=== PATIENT | female | born 1995 | race Caucasian/White ===

== ENCOUNTER 2018-09-24 17:22 | Observation (INO) | payer OTHER ==
[2018-09-24] MEDS ORDERED: CEFAZOLIN 1 GM VIAL ONE (18:49)
--- NOTE | 2018-09-24 18:52 | RAD ---
RIGHT FINGER THREE VIEWS: 09/24/18 INDICATION: History of dog bite. COMPARISON: None. FINDINGS: There is a comminuted fracture through the distal phalanx of the right ring finger with associated ov erlying soft tissue maceration. No retained foreign body is evident. IMPRESSION: Comminuted distal phalangeal fracture of the right ring finger with associated soft tissue injury. POS: PARMINDER
[2018-09-24] MEDS ORDERED: Gentamicin Sulfate 400 MG in Sodium Chloride 0.9% 100 ML IVPB SCH (19:30)
[2018-09-24] MEDS ORDERED: hydrALAZINE 20 MG/ML VIAL SLOW IVP PRN (21:26)
[2018-09-24] MEDS ORDERED: Ondansetron ODT 4 MG TAB PO PRN (21:26)
[2018-09-24] MEDS ORDERED: Dextrose 5% in Water 1,000 ML IV PRN (21:26)
[2018-09-24] MEDS ORDERED: Dextrose 50% Abboject 50 ML SYRINGE SLOW IVP PRN (21:26)
[2018-09-24] MEDS ORDERED: Ondansetron PF 4 MG/2 ML Vial IVP PRN (21:26)
[2018-09-24] MEDS ORDERED: traMADol HCl 50 MG TAB PO PRN (21:31)
[2018-09-24] MEDS ORDERED: traMADol HCl 50 MG TAB PO SCH (22:00)
[2018-09-24] MEDS ORDERED: Ibuprofen 800 MG TAB PO SCH (22:00)
[2018-09-24] MEDS ORDERED: Acetaminophen 500 MG TAB PO SCH (22:00)
[2018-09-24] MEDS ORDERED: CEFAZOLIN 1 GM in Sodium Chloride 0.9% 100 ML IVPB SCH (22:45)
[2018-09-24] MEDS ORDERED: Acetaminophen 500 MG TAB ONE (22:56)
[2018-09-25] MEDS: Sodium Chloride 0.9% 1,000 ML IV SCH ×2 (00:49→06:30)
[2018-09-25] MEDS ORDERED: Bacitracin Zinc Ointment 30 gm TUBE ONE (00:54)
[2018-09-25] MEDS ORDERED: Sodium Chloride 0.9% 50 ML ONE (00:56)
[2018-09-25] MEDS ORDERED: Fentanyl 100 MCG/2 ML VIAL ONE (01:07)
[2018-09-25] MEDS ORDERED: Bupivacaine PF 0.5% 30 ML VIAL ONE (01:52)
--- NOTE | 2018-09-25 02:12 | HP ---
REQUESTING PHYSICIAN: Dr. Underwood. ADMITTING PHYSICIAN: Dr. Tiwari. CONSULTS: Dr. Shannon. HISTORY OF PRESENT ILLNESS: This is a 23-year-old female who came to the ER from the Urgent Care with complaints of a dog bite to the right hand. The patient reports onset about 330 this evening. The patient was attempting to break up her dogs from fighting and was bit. The patient was given a tetanus shot at Urgent Care. The patient was also given Toradol for pain. Trauma Services was asked to admit the patient. The patient was given IV antibiotics, gentamicin, and Ancef in the emergency room. PAST MEDICAL HISTORY: Denies. PAST SURGICAL HISTORY: Breast augmentation. SOCIAL HISTORY: Drinks alcohol socially. Denies tobacco or smoking history. Denies drug use. ALLERGIES: DENIES ANY DRUG ALLERGIES. FAMILY HISTORY: Reports dad with diabetes type 2 and breast cancer history in her family. MEDICATIONS: Oral contraceptives. REVIEW OF SYSTEMS: A 10-point review of systems is negative unless otherwise stated in the above HPI. PHYSICAL EXAMINATION: VITAL SIGNS: Blood pressure 140/83, respirations 16, temperature 98.9, SpO2 of 96% on room air, and pulse 97. GENERAL: The patient is awake, alert, in no distress. HEENT: Atraumatic, normocephalic. NECK: Normal neck exam, normal range of motion, and trachea is midline. RESPIRATORY: Respirations are equal and clear breath sounds bilateral. No respiratory distress. CARDIOVASCULAR: Regular rate and rhythm. No murmurs. ABDOMEN: Soft, nontender, and nondistended. BACK: Normal inspection. Normal range of motion. EXTREMITIES: Laceration of right ring finger. Laceration extends from the nail bed to the lateral aspect of the dorsum of the ring finger. There is no obvious bone protrusion. No other obvious injuries. The patient moves all extremities. Normal distal pulses x4. Sensation intact x4. NEUROLOGIC: No focal deficits. LABORATORY DATA: There are no labs to evaluate. DIAGNOSTIC DATA: Right finger 3-view x-ray, comminuted distal phalangeal fracture of the right ring finger with associated soft tissue injury. IMPRESSION: 1. Status post dog bite, right ring finger. 2. Open comminuted distal phalangeal fracture, right ring finger. 3. Acute traumatic pain. PLAN: We will admit the patient to the surgical floor. Dr. Shannon plans to take the patient to the OR in the morning. The patient will be n.p.o. We will continue patient's IV antibiotics. The patient will be discussed with Dr. Tiwari after this dictation. Job ID: [id number] [facility]
[2018-09-25] MEDS ORDERED: Ondansetron HCl/PF 4 MG/2 ML Vial IVP PRN (03:08)
[2018-09-25] MEDS ORDERED: Promethazine HCl 25 MG/ML VIAL IM PRN (03:08)
[2018-09-25] MEDS ORDERED: Promethazine HCl 25 MG/ML VIAL SLOW IVP PRN (03:08)
[2018-09-25] MEDS ORDERED: Acetaminophen 325 MG TAB PO PRN ×2 (03:39→04:20)
[2018-09-25] MEDS ORDERED: traMADol HCl 50 MG TAB PO PRN (03:39)
[2018-09-25] MEDS ORDERED: Acetaminophen/Codeine 30-300mg Tablet PO PRN ×2 (03:39→04:20)
[2018-09-25] MEDS ORDERED: HYDROcodone/Acetaminophen 5/325 mg Tablet PO PRN ×2 (03:39→04:21)
[2018-09-25] MEDS ORDERED: Meperidine HCl/PF 25 MG/ML VIAL IM PRN (03:44)
[2018-09-25] MEDS ORDERED: Communication Order-Pharmacy FS PRN (03:45)
[2018-09-25] MEDS ORDERED: TETANUS AND DIPHTHERIA TOX/PF 0.5 ML DISP.SYRIN IM SCH (03:45)
[2018-09-25] MEDS ORDERED: Vancomycin HCl 1 GM in Premix Bag 1 BAG IVPB SCH ×2 (03:45→04:15)
[2018-09-25] MEDS ORDERED: Vancomycin HCl 1.5 GM in Sodium Chloride 0.9% 250 ML 300 ML IVPB SCH (04:30)
[2018-09-25] MEDS: traMADol HCl 50 MG TAB PO SCH ×2 (07:24→13:50)
[2018-09-25] MEDS: Acetaminophen 500 MG TAB PO SCH ×2 (07:25→13:50)
[2018-09-25] MEDS: Ketorolac Tromethamine 30 MG/ML VIAL IVP SCH ×2 (07:26→13:48)
[2018-09-25 07:46] LABS: #Eosinphils 0.1 thou/uL (0.0-0.7); #Lymphocytes 1.5 thou/uL (1.20-3.40); #Monocytes 0.5 thou/uL (0.11-0.59); %Basophils 0.2 % (0.0-1.0); %Eosinophils 0.9 % (0.0-10.0); %Lymphocytes 20.7 % (21.0-51.0); %Monocytes 7.6 % (0.0-10.0); %Neutrophils 70.7 % (42.0-75.0); Hemoglobin 10.9 g/dL (12.0-16.0); Mean Corpuscular HGB CONC 34.2 g/dL (32.0-36.0); Mean Corpuscular Hemoglobin 30.7 pg (27.0-31.0); Mean Corpuscular Volume 89.7 fL (78.0-98.0); Platelet Count 206 thou/uL (130-400); RBC Distribution Width 11.9 % (11.5-14.5); Red Blood Cell (RBC) Count 3.54 mill/uL (4.20-5.40)
--- NOTE | 2018-09-25 08:02 | RAD ---
3 FLUOROSCOPIC VIEWS RIGHT FINGER: Date: 09/25/18 HISTORY: Open reduction and internal fixation right finger. COMPARISON: Right finger radiograph dated 09/24/18. FINDINGS: Comminuted distal phalangeal fracture has been reduced and pinned utilizing small smooth Milena wi res. The fracture alignment is near anatomic. The pin is projecting in the expected position. The tot al fluoroscopic time is 75.7 seconds. Total exposure was 1.77 mGy*cm^2. IMPRESSION: Interval reduction and percutaneous pinning of comminuted right ring finger distal phalangeal fractur e. POS: BH
[2018-09-25 08:03] LABS: Anion Gap 11 mmol/L (10-20); BUN (Urea Nitrogen) 11 mg/dL (7.0-18.7); Calc. Creatinine Clearance 172 mL/min (70-130); Carbon Dioxide 21 mmol/L (22-29); Chloride 111 mmol/L (98-107); Estimated GFR-MDRD Greater than 90; Glucose 92 mg/dL (70-105); Potassium 3.6 mmol/L (3.5-5.1); Sodium 139 mmol/L (136-145)
[2018-09-25] MEDS ORDERED: PIRMELLA PO SCH (09:00)
[2018-09-25] MEDS ORDERED: NORETHINDRONE ETHINYL ESTRAD PO SCH (09:00)
[2018-09-25] MEDS ORDERED: Aspirin 81 mg Enteric Coated Tablet PO SCH (09:00)
[2018-09-25] MEDS ORDERED: Famotidine 20 MG TAB PO SCH (09:00)
[2018-09-25] MEDS ORDERED: Lidocaine 1% PF 5 ML VIAL ONE (09:26)
[2018-09-25] MEDS ORDERED: Succinylcholine Chloride 20 MG/ML 10 ml SYRINGE FS ONE (09:26)
[2018-09-25] MEDS ORDERED: PROPOFOL 200 MG/20 ML VIAL ONE (09:26)
[2018-09-25] MEDS ORDERED: Ondansetron PF 4 MG/2 ML Vial ONE (09:26)
[2018-09-25] MEDS ORDERED: ePHEDrine 50 MG/ML VIAL ONE (09:26)
[2018-09-25] MEDS ORDERED: Sodium Chloride 0.9% 10 ML ONE (13:54)
[2018-09-25 16:48] VITALS: BP 115/59; TEMP 98.3
--- NOTE | 2018-09-26 12:16 | OP ---
DATE OF PROCEDURE: 09/25/2018 PREOPERATIVE DIAGNOSIS: Right ring finger dog bite wound with open fracture. POSTOPERATIVE DIAGNOSIS: Right ring finger dog bite wound with open fracture. PROCEDURES PERFORMED: 1. Debridement, wound, right ring finger. 2. Open treatment, with debridement and pinning, phalanx fracture right ring finger. SPECIMEN REMOVED: None. ESTIMATED BLOOD LOSS: 30 mL. OTHER FINDINGS: Minimal gas contamination within the wound. DESCRIPTION OF PROCEDURE: After successful general anesthesia LMA technique by [place] anesthesia, the limb prepped and draped. Time-out was done appropriately. We injected the right ring finger at the proximal to the metacarpophalangeal joint with 10 mL of 0.5% Marcaine preincision. We then extended the dog bite incision proximally and distally by [address], exposed the fracture of phalanx and then irrigated it and we debrided with a curette. We then also debrided the wound using a combination of tenotomy scissors, curette, Pennington blade, and 11 blade knife. The depth was down to including the bone and fracture described above, so we debrided the material associated with the open dog bite fracture. We then found no gross infection, but there was small amount of contamination, so we did not completely close the wound. The patient then had the wound irrigated with 6 L normal saline and Pulsavac pressure, we placed in a bulky dressing, in a small short-arm splint and prepared the patient for second-stage procedure as indicated. Job ID: [id number]
[2018-09-26] MEDS ORDERED: Ibuprofen 800 MG TAB PO SCH (14:00)
--- NOTE | 2018-09-27 00:32 | DIS ---
DATE OF ADMISSION: 09/24/2018 DATE OF DISCHARGE: 09/25/2018 Attending:Dr. Tiwari DISCHARGING PHYSICIAN: Dr. Shannon. CONSULT: Hand Surgery, Dr. Shannon. PROCEDURES: On 09/24/2018, finger x-ray; comminuted distal phalangeal fracture to the right ring finger with associated soft tissue injury. The patient taken to the OR on 09/24/[address] Shannon for incision and drainage and repair of right ring finger. DISCHARGE MEDICATIONS: The patient is on control. PRIMARY DIAGNOSIS: Dog bite, right ring finger comminuted fracture with laceration. HISTORY OF PRESENT ILLNESS AND HOSPITAL COURSE: This is a 23-year-old female who came into the ER from Urgent Care with complaints of a dog bite to the right hand. The patient was attempting to break up 2 dogs from fighting when she was bit. The patient was given a tetanus shot at Urgent Care. Trauma Service was asked to admit the patient and the patient was unable to go directly to the OR and also the patient needed 24 hours of IV antibiotics. The patient had no unexpected events during her hospital stay. Her pain was well managed and controlled. The patient did complete her 24 hours of IV antibiotics. The patient was then released by Dr. Shannon. On the day of discharge, the patient was examined by Dr. Gilbert. On the day of discharge, the patient had stable vital signs and the patient's physical exam was unremarkable including cardiopulmonary and GI exam. The patient with clean, dry , and intact dressing to right hand. The patient was deemed stable for discharge home. DISPOSITION: Stable. DISCHARGE INSTRUCTIONS: 1. Home. 2. Diet: Regular diet. 3. Activity: As tolerated with nonweightbearing right hand. 4. Followup: Follow up with Dr. Shannon as directed. Follow up with Dr. Gilbert as needed. Job ID: [id number] [id number]
== END 2018-09-25 16:55 | disposition home or self-care (01) ==
LOC: ERS 17:22 → 3SE 21:26
PROVIDERS: ADMIT Surgery; ATTEND Surgery
PROC: 0PBT0ZZ Excision of Right Finger Phalanx, Open Approach (ICD-10-PCS; principal; 2018-09-25)
DX: S62.634B Displaced fracture of distal phalanx of right ring finger, initial encounter for open fracture (principal); G89.11 Acute pain due to trauma; Z79.3 Long term (current) use of hormonal contraceptives; W54.0XXA Bitten by dog, initial encounter
CPT/HCPCS: 36415; 76000; 80048; 85025; 96361; 96365; 96367; 96374; 96375; 96376; G0378; J0690; J1580; J1885; J2001; J2405; J2704; J3010; J3370; J3490; J7050; S0020